=== PATIENT | female | born 1980 | race Caucasian/White ===

== ENCOUNTER 2017-01-09 11:51 | Emergency (ER) | payer MEDICAID ==
[~2017-01-09] VITALS: Ht 162.6 cm; Wt 88.6 kg
[~2017-01-09 11:51] MED LIST: (None)3.5 GM OP; ATENOLOL25 MG PO; GENTAMICIN15 ML/BTL OP; ISENTRESS400 MG PO; KEFLEX500 M1 PO; LISINOPRIL20 MG PO; PYRIDIUM200 MG PO; TRUVADA PO; ULTRAM50 MG PO
[2017-01-09] MEDS ORDERED: EC-NAPROSYN500 MG PO (12:16)
[2017-01-09 12:37] VITALS: BP 122/63
== END 2017-01-09 12:37 | disposition home or self-care (01) | DRG 563 ==
LOC: ED 11:51
DX: S93.402A Sprain of unspecified ligament of left ankle, initial encounter (principal); I10 Essential (primary) hypertension; G40.909 Epilepsy, unspecified, not intractable, without status epilepticus; B19.20 Unspecified viral hepatitis C without hepatic coma; X50.0XXA Overexertion from strenuous movement or load, initial encounter; Z21 Asymptomatic human immunodeficiency virus [HIV] infection status

== ENCOUNTER 2017-03-12 22:52 | Emergency (ER) | payer MEDICAID ==
[~2017-03-12] VITALS: Ht 162.6 cm; Wt 91.0 kg
[~2017-03-12 22:52] MED LIST changes: +EC-NAPROSYN500 MG PO
[2017-03-13 00:13] LABS: HEMATOCRIT 42.1 % (37.0-47.0); HEMOGLOBIN 14.6 g/dl (12.0-16.0); IMMATURE GRANULOCYTES 0.6 % (0.0-1.0); MEAN CELL VOLUME 96.3 fL CALC (80.0-100.0); MEAN CORPUSCULAR HGB 33.4 pG CALC (26.0-32.0); MEAN CORPUSCULAR HGB CONC 34.7 g/L CALC (32.0-36.0); NEUT# 5.47 thou/uL (2.00-7.15); RED BLOOD COUNT 4.37 mill/uL (4.20-5.60); RED CELL DISTRI WIDTH 12.3 % (11.5-15.5)
[2017-03-13 00:32] LABS: ALBUMIN 4.4 g/dL (3.2-5.0); ALKALINE PHOSPHATASE 79 u/l (38-126); ANION GAP 18 (6-22 (CALC)); BILIRUBIN, TOTAL 0.3 mg/dL (0.0-1.4); BUN 11 mg/dL (7-17); BUN/CREATININE RATIO 14 (12-20 (CALC)); CALCIUM 8.9 mg/dL (8.4-10.2); CARBON DIOXIDE 22 mmol/l (22-30); CHLORIDE 106 mmol/l (95-108); CREATININE 0.8 mg/dL (0.5-1.0); ETHYL ALCOHOL 105 mg/dl (0-30); GFR > 60 ML/MIN (>=60 (CALC)); GFR FOR AFR.AMER. > 60 ML/MIN (>=60 (CALC)); GLUCOSE 98 mg/dL (65-105); POTASSIUM 3.8 mmol/l (3.5-5.1); SGOT/AST 20 u/l (14-36); SGPT/ALT 33 u/l (9-52); SODIUM 143 mmol/l (137-146); TOTAL PROTEIN 7.6 g/dL (6.3-8.2)
[2017-03-13] MEDS ORDERED: PERCOCET 5/325M1 TAB PO (03:05)
[2017-03-13 03:18] VITALS: BP 160/91
== END 2017-03-13 03:16 | disposition home or self-care (01) | DRG 563 ==
LOC: ED 22:52
PROVIDERS: Emergency Medicine
PROC: 2W39X1Z Immobilization of Left Upper Extremity using Splint (ICD-10-PCS; principal; 2017-03-13)
DX: S42.402A Unspecified fracture of lower end of left humerus, initial encounter for closed fracture (principal); I10 Essential (primary) hypertension; B19.20 Unspecified viral hepatitis C without hepatic coma; Z21 Asymptomatic human immunodeficiency virus [HIV] infection status; G40.909 Epilepsy, unspecified, not intractable, without status epilepticus; F17.210 Nicotine dependence, cigarettes, uncomplicated; W22.09XA Striking against other stationary object, initial encounter; Y92.009 Unspecified place in unspecified non-institutional (private) residence as the place of occurrence of the external cause

== ENCOUNTER 2017-03-16 05:32 | Emergency (ER) | payer MEDICAID ==
[~2017-03-16] VITALS: Ht 162.6 cm; Wt 90.9 kg
[~2017-03-16 05:32] MED LIST changes: +PERCOCET 5/325M1 TAB PO
[2017-03-16] MEDS ORDERED: PERCOCET 5/325M1 TAB PO (06:41)
[2017-03-16 07:41] VITALS: BP 170/98
== END 2017-03-16 07:46 | disposition home or self-care (01) | DRG 561 ==
LOC: ED 05:32
DX: S42.402D Unspecified fracture of lower end of left humerus, subsequent encounter for fracture with routine healing (principal); M25.522 Pain in left elbow; M79.602 Pain in left arm

== ENCOUNTER 2017-03-24 15:20 | Emergency (ER) | payer MEDICAID ==
[~2017-03-24] VITALS: Ht 162.6 cm; Wt 90.0 kg
[2017-03-24 15:55] VITALS: BP 122/77
[2017-03-24] MEDS ORDERED: PERCOCET 5/325M1 TAB PO (15:55)
== END 2017-03-24 15:56 | disposition home or self-care (01) | DRG 563 ==
LOC: ED 15:20
PROC: 2W0BX1Z Change Splint on Left Upper Arm (ICD-10-PCS; principal; 2017-03-24)
DX: S42.402A Unspecified fracture of lower end of left humerus, initial encounter for closed fracture (principal); R22.32 Localized swelling, mass and lump, left upper limb

== ENCOUNTER 2017-04-03 13:05 | Emergency (ER) | payer MEDICAID ==
[~2017-04-03] VITALS: Ht 162.6 cm; Wt 90.0 kg
[2017-04-03 13:50] VITALS: BP 129/77
== END 2017-04-03 13:50 | disposition home or self-care (01) | DRG 561 ==
LOC: ED 13:05
PROC: 2W0BX1Z Change Splint on Left Upper Arm (ICD-10-PCS; principal; 2017-04-03)
DX: S42.402D Unspecified fracture of lower end of left humerus, subsequent encounter for fracture with routine healing (principal)

== ENCOUNTER 2017-04-08 14:37 | Emergency (ER) | payer MEDICAID ==
[~2017-04-08] VITALS: Ht 162.6 cm; Wt 87.0 kg
[2017-04-08 15:30] VITALS: BP 100/65
== END 2017-04-08 15:30 | disposition home or self-care (01) | DRG 561 ==
LOC: ED 14:37
PROC: 2W39X1Z Immobilization of Left Upper Extremity using Splint (ICD-10-PCS; principal; 2017-04-08)
DX: S42.302D Unspecified fracture of shaft of humerus, left arm, subsequent encounter for fracture with routine healing (principal); B19.20 Unspecified viral hepatitis C without hepatic coma; I10 Essential (primary) hypertension; G40.909 Epilepsy, unspecified, not intractable, without status epilepticus; F17.210 Nicotine dependence, cigarettes, uncomplicated; X58.XXXD Exposure to other specified factors, subsequent encounter; Z21 Asymptomatic human immunodeficiency virus [HIV] infection status

== ENCOUNTER 2017-06-07 00:03 | Emergency (ER) | payer MEDICAID ==
[~2017-06-07] VITALS: Ht 162.6 cm; Wt 90.4 kg
[2017-06-07 00:19] VITALS: BP 119/68
== END 2017-06-07 03:07 | disposition home or self-care (01) | DRG 556 ==
LOC: ED 00:03
DX: M25.522 Pain in left elbow (principal); Z96.622 Presence of left artificial elbow joint; M25.512 Pain in left shoulder; R50.9 Fever, unspecified

== ENCOUNTER 2017-06-17 07:21 | Emergency (ER) | payer MEDICAID ==
[~2017-06-17] VITALS: Ht 162.6 cm; Wt 90.9 kg
[2017-06-17] MEDS ORDERED: ASPIRIN81 MG PO (08:13)
[2017-06-17] MEDS ORDERED: FLEXERIL PO (08:37)
[2017-06-17] MEDS ORDERED: TORADOL PO (08:37)
[2017-06-17 08:58] VITALS: BP 118/74
== END 2017-06-17 09:02 | disposition home or self-care (01) | DRG 552 ==
LOC: ED 07:21
DX: S23.3XXA Sprain of ligaments of thoracic spine, initial encounter (principal); M54.6 Pain in thoracic spine; T22.241A Burn of second degree of right axilla, initial encounter; R07.81 Pleurodynia; X50.0XXA Overexertion from strenuous movement or load, initial encounter; Y93.H9 Activity, other involving exterior property and land maintenance, building and construction; Y92.79 Other farm location as the place of occurrence of the external cause

== ENCOUNTER 2017-09-16 08:44 | Emergency (ER) | payer MEDICAID ==
[~2017-09-16] VITALS: Ht 162.6 cm; Wt 90.0 kg
[~2017-09-16 08:44] MED LIST changes: +ASPIRIN81 MG PO; +FLEXERIL PO; +TORADOL PO
[2017-09-16] MEDS ORDERED: ZPAK PO ×2 (09:02→09:29)
[2017-09-16] MEDS ORDERED: HYDROCHLOROT25 MG PO (09:18)
[2017-09-16 09:32] VITALS: BP 154/76
== END 2017-09-16 09:32 | disposition home or self-care (01) | DRG 153 ==
LOC: ED 08:44
DX: J06.9 Acute upper respiratory infection, unspecified (principal); I10 Essential (primary) hypertension; F17.210 Nicotine dependence, cigarettes, uncomplicated; F31.9 Bipolar disorder, unspecified; Z21 Asymptomatic human immunodeficiency virus [HIV] infection status; R05 Cough

== ENCOUNTER 2017-09-21 12:30 | Emergency (ER) | payer MEDICAID ==
[~2017-09-21] VITALS: Ht 162.6 cm; Wt 90.0 kg
[~2017-09-21 12:30] MED LIST changes: +HYDROCHLOROT25 MG PO; +ZPAK PO
[2017-09-21 12:58] LABS: HEMATOCRIT 47.8 % (37.0-47.0); IMMATURE GRANULOCYTES 0.5 % (0.0-1.0); MEAN CELL VOLUME 96.6 fL CALC (80.0-100.0); MEAN CORPUSCULAR HGB 33.7 pG CALC (26.0-32.0); MEAN CORPUSCULAR HGB CONC 34.9 g/L CALC (32.0-36.0); NEUT# 10.01 thou/uL (2.00-7.15); RED BLOOD COUNT 4.95 mill/uL (4.20-5.60); RED CELL DISTRI WIDTH 12.5 % (11.5-15.5)
[2017-09-21 13:02] LABS: HEMOGLOBIN 16.7 g/dl (12.0-16.0)
[2017-09-21 13:03] LABS: URINE BLOOD DIPSTICK MODERATE (NEGATIVE); URINE COLOR YELLOW; URINE GLUCOSE - DIPSTICK NEGATIVE (NEGATIVE); URINE KETONE NEGATIVE (NEGATIVE); URINE LEUK ESTERASE NEGATIVE (NEGATIVE); URINE NITRITE - DIPSTICK NEGATIVE (Negative); URINE PROTEIN - DIPSTICK TRACE mg/dL (NEG-TRACE); URINE SPECIFIC GRAVITY 1.025
[2017-09-21 13:10] LABS: URINE BILIRUBIN - DIPSTICK NEGATIVE (NEGATIVE); URINE CLARITY CLEAR
[2017-09-21 13:12] LABS: URINE MUCUS FEW hpf (NONE-FEW); URINE SQUAMOUS EPITHELIAL CELL FEW EPI/hpf (0-FEW); URINE WBC 0-2 WBC/hpf (0-5)
[2017-09-21 13:15] LABS: ALBUMIN 4.3 g/dL (3.2-5.0); ANION GAP 19 (6-22 (CALC)); BILIRUBIN, TOTAL 0.7 mg/dL (0.0-1.4); BUN 9 mg/dL (7-17); BUN/CREATININE RATIO 13 (12-20 (CALC)); CARBON DIOXIDE 27 mmol/l (22-30); CHLORIDE 101 mmol/l (95-108); CREATININE 0.7 mg/dL (0.5-1.0); GFR > 60 ML/MIN (>=60 (CALC)); GFR FOR AFR.AMER. > 60 ML/MIN (>=60 (CALC)); LIPASE 36 u/l (23-300); POTASSIUM 3.3 mmol/l (3.5-5.1); SGOT/AST 17 u/l (14-36); SGPT/ALT 34 u/l (9-52); SODIUM 143 mmol/l (137-146); TOTAL PROTEIN 8.3 g/dL (6.3-8.2)
[2017-09-21 13:20] LABS: ALKALINE PHOSPHATASE 137 u/l (38-126)
[2017-09-21] MEDS ORDERED: MOTRIN400 MG PO (14:49)
[2017-09-21] MEDS ORDERED: DOXYCYC MONO100 M1 PO (14:49)
[2017-09-21] MEDS ORDERED: POTASSIUM CHLO20 ME1 PO (14:59)
[2017-09-21 15:01] VITALS: BP 142/86
== END 2017-09-21 15:00 | disposition home or self-care (01) | DRG 392 ==
LOC: ED 12:30
PROVIDERS: Family Medicine
DX: R10.31 Right lower quadrant pain (principal); J06.9 Acute upper respiratory infection, unspecified; N94.89 Other specified conditions associated with female genital organs and menstrual cycle; F17.210 Nicotine dependence, cigarettes, uncomplicated; F31.9 Bipolar disorder, unspecified; I10 Essential (primary) hypertension; Z21 Asymptomatic human immunodeficiency virus [HIV] infection status
CPT/HCPCS: Q9967

== ENCOUNTER 2017-09-25 08:59 | Emergency (ER) | payer MEDICAID ==
[~2017-09-25] VITALS: Ht 162.6 cm; Wt 90.0 kg
[~2017-09-25 08:59] MED LIST changes: +DOXYCYC MONO100 M1 PO; +MOTRIN400 MG PO; +POTASSIUM CHLO20 ME1 PO
[2017-09-25] MEDS ORDERED: TESSALON PERLE100 MG PO (09:24)
[2017-09-25 09:57] VITALS: BP 179/112
== END 2017-09-25 09:57 | disposition home or self-care (01) | DRG 204 ==
LOC: ED 08:59
DX: R05 Cough (principal); F17.210 Nicotine dependence, cigarettes, uncomplicated; S29.011A Strain of muscle and tendon of front wall of thorax, initial encounter; Z72.89 Other problems related to lifestyle; Z21 Asymptomatic human immunodeficiency virus [HIV] infection status; I10 Essential (primary) hypertension

== ENCOUNTER 2017-09-29 05:20 | Emergency (ER) | payer MEDICAID ==
[~2017-09-29] VITALS: Ht 162.6 cm; Wt 88.2 kg
[~2017-09-29 05:20] MED LIST changes: +TESSALON PERLE100 MG PO
[2017-09-29 06:36] LABS: HEMATOCRIT 45.6 % (37.0-47.0); HEMOGLOBIN 15.7 g/dl (12.0-16.0); IMMATURE GRANULOCYTES 0.4 % (0.0-1.0); MEAN CORPUSCULAR HGB 33.1 pG CALC (26.0-32.0); MEAN CORPUSCULAR HGB CONC 34.4 g/L CALC (32.0-36.0); NEUT# 4.54 thou/uL (2.00-7.15); RED BLOOD COUNT 4.75 mill/uL (4.20-5.60); RED CELL DISTRI WIDTH 12.4 % (11.5-15.5)
[2017-09-29 06:48] LABS: URINE BILIRUBIN - DIPSTICK NEGATIVE (NEGATIVE); URINE BLOOD DIPSTICK SMALL (NEGATIVE); URINE COLOR YELLOW; URINE GLUCOSE - DIPSTICK NEGATIVE (NEGATIVE); URINE KETONE NEGATIVE (NEGATIVE); URINE LEUK ESTERASE NEGATIVE (NEGATIVE); URINE NITRITE - DIPSTICK NEGATIVE (Negative); URINE PH 5.5 (4.5-8.0); URINE PROTEIN - DIPSTICK NEGATIVE (NEG-TRACE); URINE SPECIFIC GRAVITY >=1.030; URINE UROBILINOGEN - DIPSTICK 0.2 E.U./dL (0.2)
[2017-09-29 06:52] LABS: ALBUMIN 3.8 g/dL (3.2-5.0); ALKALINE PHOSPHATASE 120 u/l (38-126); BILIRUBIN, TOTAL 0.6 mg/dL (0.0-1.4); BUN 19 mg/dL (7-17); BUN/CREATININE RATIO 22 (12-20 (CALC)); CARBON DIOXIDE 24 mmol/l (22-30); CHLORIDE 104 mmol/l (95-108); CREATININE 0.9 mg/dL (0.5-1.0); GFR > 60 ML/MIN (>=60 (CALC)); GFR FOR AFR.AMER. > 60 ML/MIN (>=60 (CALC)); SGOT/AST 14 u/l (14-36); SGPT/ALT 31 u/l (9-52); SODIUM 140 mmol/l (137-146); TOTAL PROTEIN 7.8 g/dL (6.3-8.2); URINE CLARITY CLOUDY
[2017-09-29 06:55] LABS: URINE BACTERIA FEW hpf; URINE CALCIUM OXALATE CRYSTALS MODERATE lpf; URINE MUCUS MANY hpf (NONE-FEW); URINE SQUAMOUS EPITHELIAL CELL MODERATE EPI/hpf (0-FEW)
[2017-09-29 06:56] LABS: ANION GAP 16 (6-22 (CALC)); POTASSIUM 4.2 mmol/l (3.5-5.1)
[2017-09-29 07:04] LABS: MYOGLOBIN 30 ng/mL (0 - 62)
[2017-09-29] MEDS ORDERED: TORADOL PO (08:45)
[2017-09-29 08:49] VITALS: BP 164/100
[2017-09-29] MEDS ORDERED: PROVENTIL108 MCG/AC IN (08:55)
== END 2017-09-29 09:03 | disposition home or self-care (01) | DRG 313 ==
LOC: ED 05:20
PROVIDERS: Emergency Medicine
DX: R07.89 Other chest pain (principal); F17.210 Nicotine dependence, cigarettes, uncomplicated; F31.9 Bipolar disorder, unspecified; I10 Essential (primary) hypertension; Z21 Asymptomatic human immunodeficiency virus [HIV] infection status; R07.81 Pleurodynia

== ENCOUNTER 2017-10-15 12:14 | Emergency (ER) | payer MEDICAID ==
[~2017-10-15] VITALS: Ht 162.6 cm; Wt 85.0 kg
[~2017-10-15 12:14] MED LIST changes: +PROVENTIL108 MCG/AC IN
[2017-10-15 12:52] LABS: URINE BILIRUBIN - DIPSTICK NEGATIVE (NEGATIVE); URINE BLOOD DIPSTICK NEGATIVE (NEGATIVE); URINE COLOR YELLOW; URINE GLUCOSE - DIPSTICK NEGATIVE (NEGATIVE); URINE KETONE NEGATIVE (NEGATIVE); URINE NITRITE - DIPSTICK NEGATIVE (Negative); URINE PROTEIN - DIPSTICK NEGATIVE (NEG-TRACE); URINE SPECIFIC GRAVITY 1.025; URINE UROBILINOGEN - DIPSTICK 0.2 E.U./dL (0.2)
[2017-10-15 12:53] LABS: URINE CLARITY CLOUDY; URINE LEUK ESTERASE MODERATE (NEGATIVE)
[2017-10-15 12:58] LABS: URINE SQUAMOUS EPITHELIAL CELL MANY EPI/hpf (0-FEW); URINE TRICHOMONAS FEW hpf
[2017-10-15 13:02] LABS: BARBITURATES NEGATIVE (NEGATIVE); COCAINE NEGATIVE (NEGATIVE); METHADONE NEGATIVE (NEGATIVE); TETRAHYDROCANNABIONOL POSITIVE (NEGATIVE); TRICYLIC ANTIDEPRESSANTS POSITIVE (NEGATIVE)
[2017-10-15 13:03] LABS: OXCYCODONE NEGATIVE (NEGATIVE)
[2017-10-15 13:19] LABS: HEMATOCRIT 47.7 % (37.0-47.0); HEMOGLOBIN 16.5 g/dl (12.0-16.0); IMMATURE GRANULOCYTES 0.2 % (0.0-1.0); MEAN CORPUSCULAR HGB 32.9 pG CALC (26.0-32.0); MEAN CORPUSCULAR HGB CONC 34.6 g/L CALC (32.0-36.0); NEUT# 1.8 thou/uL (2.00-7.15); RED BLOOD COUNT 5.02 mill/uL (4.20-5.60); RED CELL DISTRI WIDTH 12.1 % (11.5-15.5)
[2017-10-15 13:32] LABS: ALBUMIN 4.1 g/dL (3.2-5.0); ALKALINE PHOSPHATASE 100 u/l (38-126); ANION GAP 15 (6-22 (CALC)); BILIRUBIN, TOTAL 0.4 mg/dL (0.0-1.4); BUN 16 mg/dL (7-17); BUN/CREATININE RATIO 17 (12-20 (CALC)); CARBON DIOXIDE 27 mmol/l (22-30); CHLORIDE 99 mmol/l (95-108); GFR > 60 ML/MIN (>=60 (CALC)); GFR FOR AFR.AMER. > 60 ML/MIN (>=60 (CALC)); LIPASE 89 u/l (23-300); POTASSIUM 4.3 mmol/l (3.5-5.1); SGOT/AST 17 u/l (14-36); SGPT/ALT 38 u/l (9-52); SODIUM 137 mmol/l (137-146); TOTAL PROTEIN 7.8 g/dL (6.3-8.2)
[2017-10-15] MEDS ORDERED: HYDROXYZ HCL25 MG PO (14:21)
[2017-10-15] MEDS ORDERED: OXCARBAZEPINE300 MG PO (14:22)
[2017-10-15 17:48] VITALS: BP 124/78
== END 2017-10-15 17:48 | disposition short-term general hospital (02) | DRG 176 ==
LOC: ED 12:14
PROVIDERS: Emergency Medicine
DX: I26.99 Other pulmonary embolism without acute cor pulmonale (principal); F17.200 Nicotine dependence, unspecified, uncomplicated; I10 Essential (primary) hypertension; R05 Cough; Z21 Asymptomatic human immunodeficiency virus [HIV] infection status
CPT/HCPCS: J1650; Q9967

== ENCOUNTER 2017-11-12 12:50 | Emergency (ER) | payer MEDICAID ==
[~2017-11-12] VITALS: Ht 162.6 cm; Wt 90.9 kg
[~2017-11-12 12:50] MED LIST changes: +HYDROXYZ HCL25 MG PO; +OXCARBAZEPINE300 MG PO
[2017-11-12] MEDS ORDERED: TRAZODONE50 MG PO (13:14)
[2017-11-12] MEDS ORDERED: MEDDOSEPAK PO (14:13)
[2017-11-12] MEDS ORDERED: COLACE100 MG PO (14:13)
[2017-11-12] MEDS ORDERED: DOXYCYC MONO100 M1 PO (14:22)
[2017-11-12 14:25] VITALS: BP 165/99
== END 2017-11-12 14:25 | disposition home or self-care (01) ==
LOC: ED 12:50
DX: J06.9 Acute upper respiratory infection, unspecified (principal); J02.9 Acute pharyngitis, unspecified; I10 Essential (primary) hypertension; F31.9 Bipolar disorder, unspecified; Z21 Asymptomatic human immunodeficiency virus [HIV] infection status; F17.210 Nicotine dependence, cigarettes, uncomplicated; R05 Cough; H92.01 Otalgia, right ear

== ENCOUNTER 2018-07-14 16:32 | Emergency (ER) | payer MEDICAID ==
[~2018-07-14] VITALS: Ht 162.6 cm; Wt 97.3 kg
[~2018-07-14 16:32] MED LIST changes: +COLACE100 MG PO; +MEDDOSEPAK PO; +TRAZODONE50 MG PO
[2018-07-14] MEDS ORDERED: LAMICTAL150 MG PO (16:42)
[2018-07-14] MEDS ORDERED: MEDICAL MARIJUANA (16:43)
[2018-07-14] MEDS ORDERED: PENICILLN VK500 MG PO (17:08)
[2018-07-14 17:10] VITALS: BP 149/92
== END 2018-07-14 17:18 | disposition home or self-care (01) ==
LOC: ED 16:32
DX: K04.7 Periapical abscess without sinus (principal); K02.9 Dental caries, unspecified; I10 Essential (primary) hypertension; F17.210 Nicotine dependence, cigarettes, uncomplicated; Z21 Asymptomatic human immunodeficiency virus [HIV] infection status

== ENCOUNTER 2018-07-30 13:13 | Emergency (ER) | payer MEDICAID ==
[~2018-07-30] VITALS: Ht 162.6 cm; Wt 93.2 kg
[~2018-07-30 13:13] MED LIST changes: +LAMICTAL150 MG PO; +MEDICAL MARIJUANA; +PENICILLN VK500 MG PO
[2018-07-30] MEDS ORDERED: CLEOCIN300 MG PO (13:39)
[2018-07-30 13:40] VITALS: BP 131/70
== END 2018-07-30 13:40 | disposition home or self-care (01) ==
LOC: ED 13:13
DX: K04.7 Periapical abscess without sinus (principal); I10 Essential (primary) hypertension; F17.210 Nicotine dependence, cigarettes, uncomplicated; Z21 Asymptomatic human immunodeficiency virus [HIV] infection status; K08.89 Other specified disorders of teeth and supporting structures; R22.0 Localized swelling, mass and lump, head

== ENCOUNTER 2018-08-16 17:55 | Emergency (ER) | payer MEDICAID ==
[~2018-08-16] VITALS: Ht 162.6 cm; Wt 98.0 kg
[~2018-08-16 17:55] MED LIST changes: +CLEOCIN300 MG PO
[2018-08-16] MEDS ORDERED: LAMOTRIGINE200 MG PO (18:07)
[2018-08-16] MEDS ORDERED: GENVOYA 150-1501 TAB PO (18:08)
[2018-08-16 19:09] LABS: HEMATOCRIT 38.5 % (37.0-47.0); IMMATURE GRANULOCYTES 0.1 % (0.0-5.0); MEAN CELL VOLUME 96.5 fL CALC (80.0-100.0); MEAN CORPUSCULAR HGB 32.8 pG CALC (26.0-32.0); NEUT# 4.58 thou/uL (2.00-7.15); RED BLOOD COUNT 3.99 mill/uL (4.20-5.60)
[2018-08-16 19:11] LABS: HEMOGLOBIN 13.1 g/dl (12.0-16.0)
[2018-08-16 19:12] LABS: URINE BLOOD DIPSTICK LARGE (NEGATIVE); URINE GLUCOSE - DIPSTICK NEGATIVE (NEGATIVE); URINE KETONE TRACE mg/dL (NEGATIVE); URINE LEUK ESTERASE TRACE (NEGATIVE); URINE NITRITE - DIPSTICK NEGATIVE (Negative); URINE PH 6.5 (4.5-8.0); URINE PROTEIN - DIPSTICK 30 mg/dL (NEG-TRACE); URINE SPECIFIC GRAVITY >=1.030
[2018-08-16 19:20] LABS: ALBUMIN 4.1 g/dL (3.2-5.0); ALKALINE PHOSPHATASE 81 u/l (38-126); ANION GAP 13 (6-22 (CALC)); BILIRUBIN, TOTAL 0.6 mg/dL (0.0-1.4); BUN 18 mg/dL (7-17); BUN/CREATININE RATIO 23 (12-20 (CALC)); CARBON DIOXIDE 25 mmol/l (22-30); CHLORIDE 102 mmol/l (95-108); CREATININE 0.8 mg/dL (0.5-1.0); GFR > 60 ML/MIN (>=60 (CALC)); GFR FOR AFR.AMER. > 60 ML/MIN (>=60 (CALC)); POTASSIUM 3.6 mmol/l (3.5-5.1); SGOT/AST 17 u/l (14-36); SODIUM 136 mmol/l (137-146); TOTAL PROTEIN 6.9 g/dL (6.3-8.2)
[2018-08-16 19:21] LABS: URINE BILIRUBIN - DIPSTICK NEGATIVE (NEGATIVE); URINE COLOR DK. YELLOW
[2018-08-16 19:27] LABS: URINE RBC 25-50 RBC/hpf (0-5)
[2018-08-16 19:28] LABS: URINE SQUAMOUS EPITHELIAL CELL FEW EPI/hpf (0-FEW)
[2018-08-16] MEDS ORDERED: CLINDAMYCIN300 M1 PO (20:32)
[2018-08-16] MEDS ORDERED: MIRALAX3350 N1 PO (20:33)
[2018-08-16 20:56] VITALS: BP 135/92
== END 2018-08-16 20:55 | disposition home or self-care (01) ==
LOC: ED 17:55
PROVIDERS: Family Medicine
DX: K59.00 Constipation, unspecified (principal); K08.89 Other specified disorders of teeth and supporting structures; Z21 Asymptomatic human immunodeficiency virus [HIV] infection status; R50.9 Fever, unspecified; F17.210 Nicotine dependence, cigarettes, uncomplicated